=== PATIENT | female | born 1930 | race Hispanic/Latino ===

== ENCOUNTER → 2017-09-02 | Outpatient (CLI) | payer MEDICARE ==
[~2017-09-02] MED LIST: ATEN50TA PO; LOSA1TAB42 PO; PRAV40TA3 PO
== END | disposition home or self-care (01) ==
LOC: SHCH 11:06
PROVIDERS: ATTEND Internal Medicine Cardiovascular Disease
DX: I73.9 Peripheral vascular disease, unspecified (principal)
CPT/HCPCS: 93925

== ENCOUNTER 2018-07-13 17:31 | Emergency (ER) | payer BC, MEDICARE ==
[2018-07-13] MEDS ORDERED: ACETAMINOPHEN-CODEINE 300/30MG TAB ONE (18:23)
[2018-07-13] MEDS ORDERED: ONDANSETRON ODT 4 MG TAB ONE (18:23)
== END 2018-07-13 19:10 | disposition home or self-care (01) ==
LOC: EDH 17:31
DX: S42.294A Other nondisplaced fracture of upper end of right humerus, initial encounter for closed fracture (principal); I10 Essential (primary) hypertension; E07.9 Disorder of thyroid, unspecified; Z90.49 Acquired absence of other specified parts of digestive tract; Z90.89 Acquired absence of other organs; Z91.041 Radiographic dye allergy status; W18.39XA Other fall on same level, initial encounter; Y93.01 Activity, walking, marching and hiking; Y92.89 Other specified places as the place of occurrence of the external cause; Y99.8 Other external cause status
CPT/HCPCS: 29105; 73060